=== PATIENT | male | born 1940 | race Caucasian/White ===

== ENCOUNTER 2016-06-02 21:47 | Observation (INO) | payer MEDICARE, BC ==
[2016-06-02] MEDS ORDERED: ASPIRIN 81 MG TAB.CHEW ONE (22:10)
[2016-06-02] MEDS ORDERED: ASPIRIN 81 MG TAB.CHEW PO ONE (22:12)
[2016-06-02 22:15] LABS: Hematocrit 40.1 % (42.0-52.0); Mean Cell Volume 90.9 fl (78-100); Mean Corpuscular Hemoglobin 31.7 pg (27-31); Mean Corpuscular Hgb Conc 34.9 g/dl (32-36); Mean Platelet Volume 9.4 fl (6.0-9.5); Neutrophil % 51.3 % (42-75.0); Platelet Count 234 K/mm3 (150-450); Red Blood Count 4.41 M/mm3 (4.7-6.0); White Blood Count 9.8 K/mm3 (4.0-10.5)
[2016-06-02 22:33] LABS: Albumin * 3.7 gm/dl (3.4-5.0); Anion Gap 12.8 mmol/L (6.8-13.8); BUN/Creatinine Ratio 18.3 (9.0-21.6); Bilirubin, Total 0.4 mg/dL (0.0-1.1); Ca. Corrected For Albumin 8.7 mg/dL (8.4-10.2); Calcium * 8.8 mg/dL (7.9-10.9); Carbon Dioxide 26.4 mmol/L (24-32.6); Potassium 4.2 mmol/L (3.4-4.6); Total Protein 7.2 gm/dL (6.2-8.2)
[2016-06-02 22:35] LABS: Troponin I 0.029 ng/ml (0.00-0.10)
--- NOTE | 2016-06-02 23:01 | ERNOTE ---
Chest Pain/Cardiac HPI Date of Service: 06/02/16 Chief Complaint: Chest Pain Source: patient Immunizations: IMMUNIZATION HX Immunizations Up to Date Yes History of Influenza Vaccine Yes Hx Pneumococcal Vaccination Yes Allergies/Adverse Reactions: Allergies No Known Allergies Allergy (Unverified 06/02/16 21:53) Home Medications: HOME MEDICATIONS Hydrochlorothiazide 50 mg PO DAILY 06/02/16 [Last Taken Unknown] Irbesartan [Avapro] 75 mg PO DAILY 06/02/16 [Last Taken Unknown] Metoprolol Succinate [Toprol Xl] 25 mg PO DAILY 06/02/16 [Last Taken Unknown] Simvastatin [Zocor] 40 mg PO HS 06/02/16 [Last Taken Unknown] Tamsulosin HCl [Flomax] 0.4 mg PO DAILY 06/02/16 [Last Taken Unknown] Aspirin 81 mg PO DAILY 06/03/16 [Last Taken Unknown] Narrative: Here for chest pain which began 3 hours ago. Chest pain is substernal and radiates to the inner aspect of both upper arms. pt rates pain initially at 6/10 , now 2/10 with only O2 and ASA. Denies shortness of breath, cough, fevers or chills Review of Systems - Review of Systems Constitutional: Present: no symptoms reported EYE: Present: no symptoms reported ENT: Present: no symptoms reported Respiratory: Present: no symptoms reported Cardiology: Present: See HPI Musculoskeletal: Present: no symptoms reported Skin: Present: no symptoms reported - Patient's Past Medical History Patient History - Medical: No pertinent hx Patient History - Cardiac/Respiratory: COPD, CVA/Stroke, Hypertension Patient History - Cancer: No Hx of Cancer Patient History - Surgical Procedures: Appendectomy, Cataracts, Other Patient History - Other: None - Social History Living Situations: alone Abuse History: No History of abuse Psych History: No pertinent hx Smoking Status: Current every day smoker Patient requests Smoking Cessation Consult: No Initiate information on Smoking Cessation: No Alcohol Use: none Drug Use: none - Immunizations Immunizations Up to Date: Yes Hx Pneumococcal Vaccination: Yes History of Influenza Vaccine: Yes Physical Exam - Physical Exam General Appearance: Present: wd/wn, alert, no apparent distress Neck: Present: normal inspection, nontender, supple, full range of motion Respiratory: Present: no respiratory distress, normal breath sounds, no accessory muscle use, chest nontender, lungs clear Cardiovascular/Chest: Present: regular rate, rhythm, no murmur, normal peripheral pulses Peripheral Pulses: N=norm/S=strong/W=weak/B=bound/A=absent: Carotid (R): Normal , Carotid (L): Normal Gastrointestinal/Abdominal: Present: normal bowel sounds, nontender, nondistended, soft Back Exam: Present: normal inspection Neurological Exam: Present: alert, oriented, normal mood/affect, no motor/ sensory deficits Skin Exam: Present: normal color, warm/dry ED Progress - Results and Orders Patient's Lab Results:: I have reviewed the patient's lab results. - Vital Signs Patient's Vital Signs:: I have reviewed the patient's vital signs. Vital Signs: Vital Signs 06/02/16 06/02/16 06/02/16 21:50 22:03 22:39 Temperature 37.0 C Pulse Rate 97 97 84 Respiratory 16 14 Rate Blood Pressure 188/97 187/116 O2 Sat by Pulse 97 98 Oximetry - EKG EKG: NSR - initially ST segment depression noted on Lead II , next EKG when pt' s pain was down to a 2/10 was NSR with no ST depression - Progress/Reassessment Chief Complaint: Chest Pain Plan - Plan Plan: admit for chest pains Departure - Departure Clinical Impression: Chest pain Qualifiers: Chest pain type: unspecified Qualified Code(s): R07.9 - Chest pain, unspecified Disposition: [facility] Condition: Serious
--- OUTSIDE RECORDS SUMMARY | 2016-06-02 23:26 | XMS REPORT | Continuity of Care Document ---
:1940 Author Organization [facility] ([facility]) Address [place] [address] Phone [phone] Care Team Providers Name Role Phone Carissa Asif Glenn Primary Care Provider [phone] Source Comments This disclosure is being made pursuant to the Care Everywhere program, applicable federal and state laws, and may not contain all informaitonavailable regarding this patient.[facility] ([facility]) Active Allergies and Adverse Reactions No Known Allergies Current Medications Prescription Sig. Disp. Refills Start Date End Date Status hydroCHLOROthiazide 12.5 mg Take 12.5 mg by 12/29/2015 Active capsule mouth daily. irbesartan 300 mg tablet Take 300 mg by 12/29/2015 Active mouth daily. metoPROLol succinate 25 mg XL Take 25 mg by 01/02/2016 Active tablet mouth daily. simvastatin 40 mg tablet Take 40 mg by 12/29/2015 Active mouth daily. tamsulosin 0.4 mg capsule Take 0.4 mg by 12/29/2015 Active mouth daily. VIT A/VIT C/VIT E/ZINC/COPPER Active (PRESERVISION AREDS PO) aspirin 81 mg EC tablet Take 81 mg by Active mouth daily. Active Problems Problem Noted Date Essential hypertension 01/14/2016 Carotid artery disease 01/14/2016 Social History Tobacco Use Types Packs/Day Years Used Date Current Every Day Smoker Last Filed Vital Signs Vital Sign Reading Time Taken Blood Pressure 132/70 01/14/2016 11:55 AM CDT Pulse 68 01/14/2016 11:55 AM CDT Temperature - - Respiratory Rate - - Height 1.753 m (5' 9.02") 01/14/2016 11:55 AM CDT Weight 92.987 kg (205 lb) 01/14/2016 11:55 AM CDT Body Mass Index 30.26 01/14/2016 11:55 AM CDT Oxygen Saturation - - Plan of Care Health Maintenance Due Date Last Done Comments Hepatitis B Vaccine (1 of 3 - Primary Series) 1940 Tdap Vaccine 1950 Lipid Disorder Screening 1957 Td Vaccine 1957 Colonoscopy 05/15/1989 Zoster Vaccine 1999 Pneumococcal Vaccine (1 of 2 - PCV13) 2004 Influenza Vaccine: Seasonal (#1) 10/20/2015 Results from Last 3 Months Not on file
--- OUTSIDE RECORDS SUMMARY | 2016-06-02 23:30 | XMS REPORT | Continuity of Care Document ---
:1940 Author Organization [facility] ([facility]) Address [place] [address] Phone [phone] Care Team Providers Name Role Phone Carissa Asif Glenn Primary Care Provider [phone] Source Comments This disclosure is being made pursuant to the Care Everywhere program, applicable federal and state laws, and may not contain all informaitonavailable regarding this patient.[facility] ([facility]) Active Allergies and Adverse Reactions No Known [...]
[2016-06-03] MEDS ORDERED: FLU VACC QS2016-17 36MOS UP/PF 60 MCG/0.5 ML DISP.SYRIN IM ONE ×2 (03:00→09:00)
--- NOTE | 2016-06-03 03:43 | HP ---
Chief Complaint - Chief Complaint Date of Service: 06/03/16 Time of Service: 00:46 Chief Complaint: Chest pain History of Present Illness: 76 years old male adm to the floor with reports of on going chest pain x 3 hrs before coming to the ER. pt a poor historian and stated he was having chest pain at home and his family brought him to the ER. He denies nausea, vomiting, palpitation, diaphoresis, headache or shortness of breath. PMH significant for BPH, hypertension, hyperlipidemia and TIA. On adm in ER, initial EKG- ST depression repeated EKG- NSR and pt had remain NSR on telemetry monitoring. He denies chest discomfort as of current, he was given aspirin and supplemented oxygen. - Patient's Past Medical History Patient History - Medical: Other - BPH, smoker Patient History - Cardiac/Respiratory: COPD, CVA/Stroke, Hypertension Patient History - Cancer: No Hx of Cancer Patient History - Surgical Procedures: Appendectomy, Cataracts, Other Patient History - Other: None - Family History Mother Family History - Medical: Family History - Cardiac/Respiratory: Myocardial Infarction - Social History Living Situations: alone Abuse History: No History of abuse Psych History: No pertinent hx Smoking Status: Current every day smoker Have you smoked in the past 12 months: Yes Do you dip or chew tobacco: No Patient requests Smoking Cessation Consult: No Initiate information on Smoking Cessation: No Alcohol Use: none Drug Use: none - Immunizations Immunizations Up to Date: Yes Hx Pneumococcal Vaccination: Yes History of Influenza Vaccine: Yes Review Of Systems (GEN) - Review of Systems Generalized/Overall Review: Present: No Symptoms Reported EENTM: Present: No Symptoms Reported Respiratory: Present: Cough Cardiac: Present: No Symptoms Reported Abdominal: Present: No Symptoms Reported Genitourinary: Present: No Symptoms Reported Musculoskeletal: Present: No Symptoms Reported Neurological: Present: No Symptoms Reported Skin: Present: No Symptoms Reported Endocrine: Present: No Symptoms Reported Immunizations: IMMUNIZATION HX Immunizations Up to Date Yes History of Influenza Vaccine Yes Hx Pneumococcal Vaccination Yes Allergies/Adverse Reactions: Allergies Allergy/AdvReac Type Severity Reaction Status Date / Time No Known Allergies Allergy Unverified 06/02/16 21:53 Home Medications: HOME MEDICATIONS Hydrochlorothiazide 50 mg PO DAILY 06/02/16 [Last Taken Unknown] Irbesartan [Avapro] 75 mg PO DAILY 06/02/16 [Last Taken Unknown] Metoprolol Succinate [Toprol Xl] 25 mg PO DAILY 06/02/16 [Last Taken Unknown] Simvastatin [Zocor] 40 mg PO HS 06/02/16 [Last Taken Unknown] Tamsulosin HCl [Flomax] 0.4 mg PO DAILY 06/02/16 [Last Taken Unknown] Aspirin 81 mg PO DAILY 06/03/16 [Last Taken Unknown] Exam - Exam Vital Signs: Vital Signs - Last Taken Temp 36.3 C L 06/03/16 00:40 Pulse 69 06/03/16 00:40 Resp 20 06/03/16 00:40 BP 139/73 06/03/16 00:40 Pulse Ox 95 06/03/16 00:40 Constitutional: Present: Alert, Oriented x3, Cooperative, No distress, Elderly ENT Exam: Present: moist mucous membranes Eye Exam: bilateral eye: PERRL Neck: Present: full range of motion Back Exam: Present: no CVA tenderness Respiratory: Present: chest non-tender, normal breath sounds, no respiratory distress, decreased breath sounds Cardiovascular/Chest: Present: normal peripheral pulses, regular rate, rhythm, no chest tenderness, no edema Peripheral Pulses: dorsalis-pedis (R): 3+, dorsalis-pedis (L): 3+ Abdomen: Present: Normal bowel sounds, soft, nontender, nondistended, no rebound tenderness /Rectal: Present: Exam deferred Extremity: Present: normal range of motion, non-tender, normal inspection, no pedal edema, no calf tenderness Skin Exam: Present: normal color, warm/dry, no cyanosis Neurologic: Present: oriented x 3 Appearance: Present: appropriate appearance Eye contact: Present: cooperative Thoughts: Present: normal thought pattern Diagnostic Studies: Laboratory Results WBC 9.8 K/mm3 (4.0-10.5) 06/02/16 22:10 RBC 4.41 M/mm3 (4.7-6.0) L 06/02/16 22:10 Hgb 14.0 gm/dL (13.5-18.0) 06/02/16 22:10 Hct 40.1 % (42.0-52.0) L 06/02/16 22:10 MCV 90.9 fl (78-100) 06/02/16 22:10 MCH 31.7 pg (27-31) H 06/02/16 22:10 MCHC 34.9 g/dl (32-36) 06/02/16 22:10 RDW 13.0 % (11.5-14.0) 06/02/16 22:10 Plt Count 234 K/mm3 (150-450) 06/02/16 22:10 MPV 9.4 fl (6.0-9.5) 06/02/16 22:10 Immature Gran % (Auto) 0.30 % (0.001-0.429) 06/02/16 22:10 Immature Gran # (Auto) 0.03 K/mm3 (0.000-0.0310) 06/02/16 22:10 Neutrophils % 51.3 % (42-75.0) 06/02/16 22:10 Lymphocytes % 35.1 % (20-51) 06/02/16 22:10 Monocytes % 9.4 % (0.0-9) H 06/02/16 22:10 Eosinophils % 3.6 % (0.0-3.0) H 06/02/16 22:10 Basophils % 0.3 % (0.0-1.0) 06/02/16 22:10 Nucleated RBC % 0.0 k/mm3 (0-1) 06/02/16 22:10 Neutrophils # 5.0 K/mm3 (1.3-6.0) 06/02/16 22:10 Lymphocytes # 3.4 k/mm3 (1.5-3.5) 06/02/16 22:10 Monocytes # 0.9 k/mm3 (0.0-1.0) 06/02/16 22:10 Eosinophils # 0.4 k/mm3 (0.0-0.7) 06/02/16 22:10 Absolute Basophils 0.0 k/mm3 (0.0-0.1) 06/02/16 22:10 Sodium 131 mmol/L (132-142) L 06/02/16 22:10 Plasma Sodium 132 mmol/L (130-142) 06/02/16 22:10 Potassium 4.2 mmol/L (3.4-4.6) 06/02/16 22:10 Chloride 96 mmol/L (97-106) L 06/02/16 22:10 Carbon Dioxide 26.4 mmol/L (24-32.6) 03/15/17 22:10 Anion Gap 12.8 mmol/L (6.8-13.8) 06/02/16 22:10 BUN 23 mg/dL (6-23) 06/02/16 22:10 Creatinine 1.26 mg/dL (0.4-1.4) 06/02/16 22:10 Est GFR (Non-Af Amer) 59 mL/min (60-130) L 06/02/16 22:10 BUN/Creatinine Ratio 18.3 (9.0-21.6) 06/02/16 22:10 Random Glucose 163 mg/dL (70-110) H 06/02/16 22:10 Calcium 8.8 mg/dL (7.9-10.9) 06/02/16 22:10 Calcium Adj for Albumin 8.7 mg/dL (8.4-10.2) 06/02/16 22:10 Total Bilirubin 0.4 mg/dL (0.0-1.1) 06/02/16 22:10 AST 15 U/L (0-48) 06/02/16 22:10 ALT 22 U/L (19-67) 06/02/16 22:10 Alkaline Phosphatase 108 U/L (50-170) 06/02/16 22:10 Troponin I 0.029 ng/ml (0.00-0.10) 06/02/16 22:10 Total Protein 7.2 gm/dL (6.2-8.2) 06/02/16 22:10 Albumin 3.7 gm/dl (3.4-5.0) 06/02/16 22:10 Assessment/Plan - Narrative Narrative: Chest pain- resolved On adm initial EKG- ST depression, repeated EKG- NSR Pt remain NSR while on telemetry Aspirin 81mg given in ER Repeat EKG in am On adm Troponin 0.029 negative serial pending Lipid panel pending CXR: pending Supplemented oxygen Keep NPO for stress test in am May resume home dose of statin Hypertension- stable BP on adm 139/73 may resume home dose of medications BPH May resume home medication Code status: Full VTE ppx SCD and ambulate Time 35 minutes Anticipate discharge 0-1 day - Assessment/Plan (1) Chest pain Problem: Acute Qualifiers: Chest pain type: unspecified Qualified Code(s): R07.9 - Chest pain, unspecified (2) Hypertension Problem: Chronic Qualifiers: Hypertension type: essential hypertension Qualified Code(s): I10 - Essential (primary) hypertension (3) BPH (benign prostatic hyperplasia) Problem: Chronic
[2016-06-03 04:34] LABS: Albumin * 3.4 gm/dl (3.4-5.0); Anion Gap 12.7 mmol/L (6.8-13.8); BUN/Creatinine Ratio 18.3 (9.0-21.6); Bilirubin, Total 0.4 mg/dL (0.0-1.1); Ca. Corrected For Albumin 8.9 mg/dL (8.4-10.2); Calcium * 8.7 mg/dL (7.9-10.9); Carbon Dioxide 24.8 mmol/L (24-32.6); Potassium 4.5 mmol/L (3.4-4.6); Total Protein 6.7 gm/dL (6.2-8.2)
[2016-06-03 04:38] LABS: Troponin I 0.53 ng/ml (0.00-0.10)
[2016-06-03] MEDS ORDERED: NICOTINE 21 MG PATC TD SCH (05:00)
[2016-06-03 07:13] VITALS: BP 130/84
[2016-06-03] MEDS ORDERED: METOPROLOL SUCCINATE 25 MG TABLET.SA PO SCH (09:00)
[2016-06-03] MEDS ORDERED: TAMSULOSIN HCL 0.4 MG CAP.SR.24H PO SCH ×2 (09:00→19:00)
[2016-06-03] MEDS ORDERED: LOSARTAN POTASSIUM 50 MG TABLET PO SCH (09:00)
[2016-06-03] MEDS ORDERED: HYDROCHLOROTHIAZIDE 25 MG TABLET PO SCH (09:00)
--- NOTE | 2016-06-03 09:20 | DS ---
Transfer Discharge Summary - Diagnosis(s)/Problems (1) Chest pain Narrative: Mr. Roach is a pleasant 76 y/o male who presented to the ER last evening with complaints of left sided chest pain. He denies any associated shortness of breath. Pain was present for approximately 3 hours prior to presenting to the emergency room. He denies any nausea or vomiting. No palpitations. No diaphoresis. No headache. He denies any past medical history of coronary artery disease but does suffer from hypertension and hyperlipidemia. He has had a TIA in the past. He has also undergone a left carotid endarterectomy in the past. He does take aspirin 81 mg daily as well as a beta lisa (metoprolol succinate 25 mg daily). In the emergency room, ECG showed ST segment changes in leads 2, 3, aVF. Initial troponin was negative. At 0200, troponin was elevated at 0.5. He denies any further chest pain, but continues to have ST segment depression in several leads. Troponin this morning came back positive at 0.623. Due to elevated troponin, ST segment changes, consultation with [facility] and request for transfer were made. He will be transferred to [facility] to undergo cardiac catheterization. At the time of discharge, his vital signs are stable. He is afebrile and pain-free. His daughter, Fernanda, is in the room and aware of transfer. Problem: Acute - Course Consultation Done:: Telephone consultation with [facility] Procedures Performed: none - Results and Findings Results and Findings: Laboratory Results - last 24 hr 06/03/16 06/03/16 04:10 08:40 Sodium 130 L Plasma Sodium 130 Potassium 4.5 Chloride 97 Carbon Dioxide 24.8 Anion Gap 12.7 BUN 21 Creatinine 1.15 Est GFR (Non-Af Amer) 66 BUN/Creatinine Ratio 18.3 Random Glucose 105 D Calcium 8.7 Calcium Adj for Albumin 8.9 Total Bilirubin 0.4 AST 14 ALT 19 Alkaline Phosphatase 100 Troponin I 0.530 H* 0.623 H* Total Protein 6.7 Albumin 3.4 Triglycerides 58 Cholesterol 133 LDL Cholesterol 78 VLDL Cholesterol 12 HDL Cholesterol 43 Cholesterol/HDL Ratio 3.0 L - Medications Medications: Active Medications Hydrochlorothiazide (Hydrodiuril) 50 mg PO DAILY DIANA Stop: 07/03/16 09:01 Last Admin: 06/03/16 08:58 Dose: Not Given Losartan Potassium (Cozaar) 25 mg PO DAILY [facility] Stop: 07/03/16 09:01 Last Admin: 06/03/16 08:57 Dose: Not Given Metoprolol Succinate (Toprol Xl) 25 mg PO DAILY [facility]IANA Stop: 07/03/16 09:01 Last Admin: 06/03/16 08:55 Dose: 25 mg Nicotine (Nicoderm) 21 mg TD DAILY [facility] Stop: 07/03/16 05:01 Last Admin: 06/03/16 08:58 Dose: Not Given Discontinued Medications Aspirin (Aspirin Chewable) 81 mg PO ONCE ONE Stop: 06/02/16 22:13 Last Admin: 06/02/16 22:12 Dose: 81 mg Influenza Virus Vaccine Quadrival (Fluarix Quad [id number] Syringe) 60 mcg IM .ONCE ONE Stop: 06/03/16 09:01 Last Admin: 06/03/16 08:59 Dose: Not Given - Disposition Disposition: [facility] Condition: Serious Discharge Date: 06/03/16 Discharge Time: 09:19
[2016-06-03] MEDS ORDERED: SIMVASTATIN 40 MG TABLET PO SCH (21:00)
== END 2016-06-03 09:50 | disposition short-term general hospital (02) ==
LOC: ER 21:47 → MS 23:24
PROVIDERS: ADMIT Nurse Practitioner; ATTEND Internal Medicine
DX: R07.9 Chest pain, unspecified (principal); I10 Essential (primary) hypertension; E78.5 Hyperlipidemia, unspecified; F17.210 Nicotine dependence, cigarettes, uncomplicated; R78.89 Finding of other specified substances, not normally found in blood
CPT/HCPCS: 36415; 71020; 80053; 80061; 84484; 85025; 93005; 99284; G0378